=== PATIENT | male | born 1995 | race African-American/Black ===

== ENCOUNTER 2016-05-15 23:00 | Inpatient (IN) | payer OTHER ==
[~2016-05-15] VITALS: Ht 167.6 cm; Wt 77.8 kg
[2016-05-15 23:55] LABS: MEAN CORPUSCULAR HEMOGLOBIN 31.1 pg (27.0-33.0); MEAN CORPUSCULAR HGB CONC 34.4 g/dl (32.0-36.5); MEAN CORPUSCULAR VOLUME 90.3 fl (80.0-96.0); WHITE BLOOD COUNT 9.8 K/mm3 (4.0-10.0)
[2016-05-16 00:04] LABS: AMPHETAMINES LEVEL URINE POSITIVE (NEGATIVE); BENZODIAZEPINES URINE NEGATIVE (NEGATIVE); COCAINE METABOLITE URINE NEGATIVE (NEGATIVE); CONTROL LINE INT CTR LINE PRESENT; METHADONE URINE NEGATIVE (NEGATIVE); OPIATES URINE NEGATIVE (NEGATIVE); TRICYCLIC ANTIDEPRESS URINE NEGATIVE (NEGATIVE)
[2016-05-16 00:28] LABS: ALBUMIN 3.8 GM/DL (3.2-5.2); ALBUMIN/GLOBULIN RATIO 1.19 (1.00-1.93); ALKALINE PHOSPHATASE 75 U/L (45-117); ALT/SGPT 36 U/L (12-78); ANION GAP 10 MEQ/L (8-16); AST/SGOT 21 U/L (15-37); BILIRUBIN,DIRECT 0.3 MG/DL (0.0-0.2); BILIRUBIN,TOTAL 1.3 MG/DL (0.2-1.0); BLOOD UREA NITROGEN 12 MG/DL (7-18); CALCIUM LEVEL 8.9 MG/DL (8.5-10.1); CARBON DIOXIDE LEVEL 30 MEQ/L (21-32); CHLORIDE LEVEL 103 MEQ/L (98-107); CREATININE FOR GFR 1.28 MG/DL (0.70-1.30); GLUCOSE, FASTING 92 MG/DL (70-105); POTASSIUM SERUM 3.7 MEQ/L (3.5-5.1); SODIUM LEVEL 143 MEQ/L (136-145)
[2016-05-16] MEDS ORDERED: LORazepam 1 MG TAB PO PRN (01:30)
[2016-05-16] MEDS ORDERED: MAALOX 30 ML SUSP *UDC PO PRN (01:30)
[2016-05-16] MEDS ORDERED: MOM 30ML SUSPENSION UDC PO PRN (01:30)
[2016-05-16] MEDS ORDERED: HALOPERIDOL 5 MG TAB PO PRN (01:30)
[2016-05-16] MEDS ORDERED: TRAZ100T4 PO (01:44)
[2016-05-16] MEDS ORDERED: DERMABOND TOPICAL SKIN ADHESIVE As Ordered ONE (03:16)
--- NOTE | 2016-05-16 04:20 | EDDOCDS ---
Nurse's Notes [facility] Name: José Miguel May Age: 20 yrs Sex: Male : 1995 Arrival Date: 05/15/2016 Time: 23:00 Bed [facility] Private MD: Diagnosis: Major depressive disorder, recurrent, moderate;Suicidal ideations Presentation: 05/15 23:04 Presenting complaint: Police state pt was sending text/picture messages to family of jf3 large amounts of pills and stating he would kill himself. Pt admitted to to police upon their arrival. Command officer on scene with police, but not at facility at this time. Mental Health Triage Level: Level 2: The patient displays active suicidal ideations. The patient was brought to the ED for evaluation because of a legal pickup order. Mental Health Triage Level: Level 2: The patient displays active suicidal ideations. The patient was brought to the ED for evaluation because of a legal pickup order. Suicide/Homicide risk assessment- The patient admits to and/or has been reported to be having suicidal ideations. Transition of care: patient was not received from another setting of care. 23:04 Acuity: ISIAH Level 3 jf3 23:04 Method Of Arrival: Police Car jf3 23:19 Adult Sepsis Screening: The patient does not have new or worsening altered mentation. jf3 Patient's respiratory rate is less than 22. Systolic blood pressure is greater than 100. Patient has a qSOFA score of 0- Negative Sepsis Screen. 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 23:19 Presenting complaint: Patient states: when asked what happened tonight the pt states "I jf3 don't know". When asked if suicidal pt states he is not suicidal and that he was just sending his pictures of a bunch of pills to be funny and make her mad. Triage Assessment: 23:04 General: Appears in no apparent distress, comfortable, Behavior is agitated, jf3 cooperative. Pt Declines HIV testing. The patient is triaged at the bedside. See Assessment in Nurses Notes section of ED record. 23:18 Pain: Denies pain. Respiratory: Airway is patent Respiratory effort is even, unlabored, jf3 Respiratory pattern is regular, symmetrical. Historical: - Allergies: no known allergies; - Home Meds: 1. none - PMHx: none; - PSHx: none; - The history from nurses notes was reviewed: but there are no nursing notes, or only partial notes available at the time of my charting. - Social history: Smoking status: other No barriers to communication noted, The patient speaks fluent Amharic. - : The pt / caregiver states he / she is not on anticoagulants. Home medication list is obtained from the patient. - Exposure Risk Screening:: None identified. - Immunization history:: Last tetanus immunization: up to date. - Family history: Not pertinent. - Social history:: the patient is a non-smoker, the patient does not drink alcohol, the patient does not use illicit drugs. Screenin:50 Screening information is obtained from the patient. Fall risk: No risks identified. slm Assistance ADL's: requires no assistance with activities of daily living. Abuse/DV Screen: The patient / caregiver reports he/she is: not in a situation that causes fear, pain or injury. Nutritional screening: No deficits noted. Advance Directives: Currently, there is no health care proxy. There is no active DNR order. There is no living will. There is no Power of Wind Turbine Engineer. Advance directive information has not previously been placed in an [facility] medical record. Further advance directive information is declined. 05/16 04:01 home support is adequate. ka4 Assessment: 05/15 23:10 General: Appears in no apparent distress, comfortable, Behavior is quiet. General: pt slm laying on stretcher resistant to answering staffs questions at this time . Respiratory: Airway is patent Respiratory effort is even, unlabored. Derm: Skin is normal. 23:18 General: Appears in no apparent distress, comfortable, Behavior is agitated, jf3 cooperative. Pain: Denies pain. Neurological: Level of Consciousness is awake, alert, Oriented to person, place, time. Cardiovascular: Capillary refill < 3 seconds. Respiratory: Airway is patent Respiratory effort is even, unlabored, Respiratory pattern is regular, symmetrical, Denies shortness of breath at rest. Derm: Skin is normal. 23:27 General: patient came in with 9 white, round, pills that were not identified. pills ka4 were brought to pharmacy.. 05/16 00:01 General: Appears in no apparent distress, comfortable, Behavior is cooperative, slm pleasant. General: pt resting on stretcher security observing . Respiratory: Airway is patent Respiratory effort is even, unlabored. 01:02 General: Appears in no apparent distress, comfortable, Behavior is cooperative, quiet. ka4 Respiratory: Airway is patent Respiratory effort is even, unlabored, Respiratory pattern is regular, symmetrical. 01:57 Reassessment: Patient appears in no apparent distress at this time. General: Appears in ka4 no apparent distress, comfortable, to be sleeping. Behavior is cooperative, quiet. General: security at desk observing . Respiratory: Airway is patent Respiratory effort is even, unlabored, Respiratory pattern is regular, symmetrical. Derm: Skin is intact, is healthy with good turgor, Skin is pink, warm & dry. 03:22 General: Appears in no apparent distress, comfortable, to be sleeping. Respiratory: mgs Airway is patent Respiratory effort is even, unlabored, Respiratory pattern is regular, symmetrical. 04:01 General: Appears in no apparent distress, comfortable, to be sleeping. Behavior is ka4 cooperative, quiet. Respiratory: Airway is patent Respiratory effort is even, unlabored, Respiratory pattern is regular, symmetrical. Mental Health Eval: 00:46 Mental health consult is initiated at 12:20. 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 [facility] Behavioral Health: The patient is not an established patient of [facility] Behavioral Health. Referral Information: Evaluation referral is generated by a police agency: [facility] ([place] # [id number]) on . The patient was referred for evaluation because patient had reportedly sent pictures of pills & text messages regarding suicide to family members, and then admitted to + SI to police when interviewed. 00:51 Subjective: The patients chief complaint is "Well...it was really no big deal. You what jl I mean?". Delusions are denied. Patient's mood is dysphoric. Hallucinations are denied. Patient's sister (Jyoti May) phoned ED U with a report that patient had sent another family member a picture of pills & had expressed + SI from somewhere on [place]. She was directed to [facility], which was able to determine patient's location & dispatch police. Upon arrival in ED, police reported to staff that patient had been found in possession of pills & had admitted to being suicidal. When interviewed by ED MD, patient suggested that he didn't know why he was here. During [facility], patient stated that tonight's events were "Really no big deal". He stated that he had sent the picture of pills to his in attempt to lure her home. When asked why he'd do that, he said that she had done the same thing to him a couple of months ago when she wanted him home quickly. He denied ever telling police that he was suicidal & denied having any mental health hx. When asked what the pills were, he replied that they were "Sleeping pills, Trazodone", and that he'd gotten them from [facility]. He said that the pills "Must have fallen out of my pocket or something", when he got up to answer the door [when police arrived]. Mental Health history: sleep disturbance, Mental Health Admissions: None. Current Outpatient Mental Health Services: ? [facility]. Current living environment is The patient currently lives with his . Patient presents to Emergency Department with the following symptoms within the past 2 weeks: marital problem, sleep disturbance - insomnia, suicidal ideation with plan for pills. Substance abuse: Patient denies, although his UDS in ED tonight is positive for amphetamines. Mental status exam: Patients appearance is appropriate, Patient's behavior is superficially cooperative Speech is unspontaneous Affect is restricted. Mood is dysphoric. Hallucinations are denied. Appetite is normal. Memory is good. Energy level is normal. Content of thought is normal. Thought process is intact. Cognitive level is oriented to person, place, time and situation Patient's insight is poor. Judgement is poor. Rapport with interviewer is guarded. Suicidal Ideation is denied. Homicidal ideation is denied. 02:06 Disposition: Medically cleared for disposition by Segundo Atwood MD Psychiatric Consult jl is performed by phone with Dr Gallo Sarah. [facility] Admission Criteria: The patient is experiencing suicidal ideation. The patient requires continuous observation and/or control to protect self, others or property. The patient's care requires a multi-modal treatment plan under close supervision and coordination due to the complexity and severity of the patient's symptoms. Legal Status: Patient's legal status will be Emergency admission: . [place] Safe Act: [place] Safe [place] is applicable to this patient. The patient poses a risk to self or other and the Nursing Scrap Drop Operator has been notified. He/She will enter the patient's data. DSM-V Differential Diagnosis: Unspecified Depressive Disorder (F32.9). Insurance Pre-Certification: Not Required. Vital Signs: 01/02 23:09 BP 132 / 77; Pulse 96; Resp 16; Temp 98.4; Pulse Ox 97% on R/A; Pain 0/10; slm 05/16 03:25 BP 141 / 70; Pulse 89; Resp 18; Temp 96.9(T); Pulse Ox 96% on R/A; Pain 0/10; ka4 Vitals: 05/15 23:04 Log In time N/A- police car arrival. jf3 ED Course: 23:02 Patient visited by Toby Mckeon. zo 23:02 Patient moved to Waiting zo 23:02 Patient moved to [facility] zo 23:07 Triage Initiated jf3 23:08 Segundo Atwood MD is Attending Physician. pc 23:08 Patient visited by Segundo Atwood MD. pc 23:09 Nelli Arredondo LPN is Primary Nurse. slm 23:11 Patient visited by Nelli Arredondo LPN. slm 23:15 Pt greeted and oriented to ED. Patient advised of names of staff involved in care, kb5 location of call sauer, wait times and NPO status. Patient has correct armband on for positive identification. Placed in psych safe attire. Bed in low position. Call light in reach. Side rails up X 1. Security observing. Property removed, inventory done, secured in belongings bag- Placed in Locker 1. Door closed. Noise minimized. Visitors limited. Psych Safety Check: Location: Psych Room. Visual Assessment: Cooperative. Psych Safety Check: Location: Psych Room. Visual Assessment: Cooperative. 23:18 The patient / caregiver is instructed regarding the plan of care and ED course. jf3 23:22 Patient visited by Noe Kidd PCA. kb5 23:27 Patient visited by Italia Corrales LPN. ka4 23:30 Psych Safety Check: Location: Psych Room. Visual Assessment: Cooperative. kb5 23:42 Patient visited by Noe Kidd PCA. kb5 23:45 Psych Safety Check: Location: Psych Room. Visual Assessment: Cooperative. kb5 23:50 Patient visited by Nelli Arredondo LPN. slm 23:50 No IV's were initiated during this patient's visit. No procedures done that require slm assistance. Labs drawn. (by ED staff). Sent per order to lab. Urine collected. Urine specimen sent to lab. 05/16 00:00 Psych Safety Check: Location: Psych Room. Visual Assessment: Cooperative. kb5 00:01 Patient visited by Noe Kidd PCA. kb5 00:02 Patient visited by Nelli Arredondo LPN. slm 00:15 Psych Safety Check: Location: Psych Room. Visual Assessment: Cooperative. kb5 00:29 Patient visited by Noe Kidd PCA. kb5 00:30 Psych Safety Check: Location: Psych Room. Visual Assessment: Cooperative. kb5 00:45 Patient visited by Noe Kidd PCA. kb5 00:45 Psych Safety Check: Location: Psych Room. Visual Assessment: Cooperative. kb5 01:00 Psych Safety Check: Location: Psych Room. Visual Assessment: Cooperative. kb5 01:08 Patient visited by Noe Kidd PCA. kb5 01:15 Patient visited by Noe Kidd PCA. kb5 01:15 Psych Safety Check: Location: Psych Room. Visual Assessment: Cooperative. kb5 01:16 Gallo Sarah is Hospitalizing Provider. pc 01:30 Psych Safety Check: Location: Psych Room. Visual Assessment: Cooperative. kb5 01:34 Patient name changed from José Miguel\\S\\\\S\\May\\S\\ to José Miguel\\S\\Abdias\\S\\May. EDMS 01:34 [facility] Payment Agreement was scanned into [employer] and attached to record. hs2 01:38 Patient visited by Noe Kidd PCA. kb5 01:40 Primary Nurse role handed off by Nelli Arredondo LPN tasha 01:45 Patient visited by Noe Kidd PCA. kb5 01:45 Psych Safety Check: Location: Psych Room. Visual Assessment: Cooperative. kb5 01:51 Patient visited by Italia Corrales LPN. ka4 01:57 Patient visited by Italia Corrales LPN. ka4 02:00 Psych Safety Check: Location: Psych Room. Visual Assessment: Cooperative. kb5 02:06 [facility] Legal paperwork was scanned into [employer] and attached to record. jl 02:15 Psych Safety Check: Location: Psych Room. Visual Assessment: Cooperative. kb5 02:30 Psych Safety Check: Location: Psych Room. Visual Assessment: Cooperative. kb5 02:43 Patient visited by Noe Kidd PCA. kb5 02:45 Psych Safety Check: Location: Psych Room. Visual Assessment: Cooperative. kb5 03:00 Psych Safety Check: Location: Psych Room. Visual Assessment: Cooperative. kb5 03:15 Psych Safety Check: Location: Psych Room. Visual Assessment: Cooperative. kb5 03:22 Alen Mabry,RICHARD is Primary Nurse. mgs 03:26 Patient visited by Italia Corrales LPN. ka4 03:30 Patient visited by Noe Kidd PCA. kb5 03:30 Psych Safety Check: Location: Psych Room. Visual Assessment: Cooperative. kb5 03:45 Patient visited by Noe Kidd PCA. kb5 03:45 Psych Safety Check: Location: Psych Room. Visual Assessment: Cooperative. kb5 04:00 Patient visited by Noe Kidd PCA. kb5 04:00 Psych Safety Check: Location: Psych Room. Visual Assessment: Cooperative. kb5 04:02 Patient visited by Italia Corrales LPN. ka4 04:15 Patient visited by Noe Kidd PCA. kb5 04:15 Psych Safety Check: Location: Psych Room. Visual Assessment: Cooperative. kb5 Attachments: 02:06 [facility] Legal paperwork jl Order Results: Lab Order: Acetaminophen Level; SPEC'M 05/15/16 23:35 Test: ACETAMINOPHEN LEVEL; Value: < 2.0; Range: 10.0-30.0; Abnormal: Below low normal; Units: UG/ML; Status: F Lab Order: Basic Metabolic Profile; SPEC'M 05/15/16 23:35 Test: GLUCOSE, FASTING; Value: 92; Range: 70-105; Units: MG/DL; Status: F Test: BLOOD UREA NITROGEN; Value: 12; Range: 7-18; Units: MG/DL; Status: F Test: CREATININE FOR GFR; Value: 1.28; Range: 0.70-1.30; Units: MG/DL; Status: F Test: SODIUM LEVEL; Value: 143; Range: 136-145; Units: MEQ/L; Status: F Test: POTASSIUM SERUM; Value: 3.7; Range: 3.5-5.1; Units: MEQ/L; Status: F Test: CHLORIDE LEVEL; Value: 103; Range: 98-107; Units: MEQ/L; Status: F Test: CARBON DIOXIDE LEVEL; Value: 30; Range: 21-32; Units: MEQ/L; Status: F Test: ANION GAP; Value: 10; Range: 8-16; Units: MEQ/L; Status: F Test: CALCIUM LEVEL; Value: 8.9; Range: 8.5-10.1; Units: MG/DL; Status: F Lab Order: Complete Blood Count; SPEC'M 05/15/16 23:35 Test: WHITE BLOOD COUNT; Value: 9.8; Range: 4.0-10.0; Units: K/mm3; Status: F Test: RED BLOOD COUNT; Value: 4.60; Range: 4.30-6.10; Units: M/mm3; Status: F Test: HEMOGLOBIN; Value: 14.3; Range: 14.0-18.0; Units: g/dl; Status: F Test: HEMATOCRIT; Value: 41.5; Range: 42.0-52.0; Abnormal: Below low normal; Units: %; Status: F Test: MEAN CORPUSCULAR VOLUME; Value: 90.3; Range: 80.0-96.0; Units: fl; Status: F Test: MEAN CORPUSCULAR HEMOGLOBIN; Value: 31.1; Range: 27.0-33.0; Units: pg; Status: F Test: MEAN CORPUSCULAR HGB CONC; Value: 34.4; Range: 32.0-36.5; Units: g/dl; Status: F Test: RED CELL DISTRIBUTION WIDTH; Value: 13.0; Range: 11.5-14.5; Units: %; Status: F Test: PLATELET COUNT, AUTOMATED; Value: 271; Range: 150-450; Units: k/mm3; Status: F Lab Order: Drug Eval Toxicology ED Only; SPEC'M 05/15/16 23:36 Test: AMPHETAMINES LEVEL URINE; Value: POSITIVE; Range: NEGATIVE; Abnormal: Above high normal; Status: F Test: BARBITURATES URINE; Value: NEGATIVE; Range: NEGATIVE; Status: F Test: BENZODIAZEPINES URINE; Value: NEGATIVE; Range: NEGATIVE; Status: F Test: CANNABINOIDS URINE; Value: NEGATIVE; Range: NEGATIVE; Status: F Test: COCAINE METABOLITE URINE; Value: NEGATIVE; Range: NEGATIVE; Status: F Test: METHADONE URINE; Value: NEGATIVE; Range: NEGATIVE; Status: F Test: OPIATES URINE; Value: NEGATIVE; Range: NEGATIVE; Status: F Test: TRICYCLIC ANTIDEPRESS URINE; Value: NEGATIVE; Range: NEGATIVE; Status: F Test Note: ; ALL PRESUMPTIVE POSITIVE FINDINGS ARE UNCONFIRMED NORMAL VALUES THRESHOLD IN NG/ML AMPHETAMINES 1000 METHAMPHETAMINES 1000 BARBITURATES 300 BENZODIAZEPINES 300 CANNABINOIDS (THC) 50 COCAINE METABOLITE 300 METHADONE 300 OPIATES 300 PHENCYCLIDINE 25 TRICYCLIC ANTIDEPRESSANTS 1000 RESULTS ARE FOR MEDICAL PURPOSES ONLY. ALL URINE SPECIMENS WILL BE SAVED FOR 3 DAYS. IF CONFIRMATION OF A PRESUMPTIVE POSTIVE SCREEN RESULT IS DESIRED, CALL CHEMISTRY ([phone]) AND REQUEST URINE TO BE SENT TO REFERENCE LAB. FOR A LIST OF CLOSELY RELATED COMPOUNDS PLEASE CALL THE LAB. Lab Order: Ethyl Alcohol (ethanol); SPEC'M 05/15/16 23:35 Test: ETHYL ALCOHOL (ETHANOL); Value: < 0.003; Range: 0.000-0.010; Units: %; Status: F Lab Order: Liver Profile; SPEC'M 05/15/16 23:35 Test: AST/SGOT; Value: 21; Range: 15-37; Units: U/L; Status: F Test: ALT/SGPT; Value: 36; Range: 12-78; Units: U/L; Status: F Test: ALKALINE PHOSPHATASE; Value: 75; Range: 45-117; Units: U/L; Status: F Test: BILIRUBIN,TOTAL; Value: 1.3; Range: 0.2-1.0; Abnormal: Above high normal; Units: MG/DL; Status: F Test: BILIRUBIN,DIRECT; Value: 0.3; Range: 0.0-0.2; Abnormal: Above high normal; Units: MG/DL; Status: F Test: TOTAL PROTEIN; Value: 7.0; Range: 6.4-8.2; Units: GM/DL; Status: F Test: ALBUMIN; Value: 3.8; Range: 3.2-5.2; Units: GM/DL; Status: F Test: ALBUMIN/GLOBULIN RATIO; Value: 1.19; Range: 1.00-1.93; Status: F Lab Order: Salicylate Level; SPEC'M 05/15/16 23:35 Test: SALICYLATE LEVEL; Value: < 1.7; Range: 5.0-30.0; Abnormal: Below low normal; Units: MG/DL; Status: F Lab Order: Thyroid Stimulating Hormone; SPEC'M 05/15/16 23:35 Test: THYROID STIMULATING HORMONE; Value: 1.270; Range: 0.463-3.98; Units: uIU/ML; Status: F Outcome: 01:16 Decision to Hospitalize by Provider. 04:01 Discharge Assessment: Patient awake, alert and oriented x 3. No cognitive and/or ka4 functional deficits noted. Patient verbalized understanding of disposition instructions. Discharge Assessment: patient administered narcotics - no. The following High Risk Discharge criteria are identified: None. Admitted to Psych accompanied by tech, via wheelchair. Condition: stable. No special radiology studies were completed. 04:18 Patient left the ED. ka4 Signatures: Dispatcher [employer] EDMS Segundo Atwood MD MD pc Skyler, Nirav, PSA PSA Toby Swan Kristopher, CLINIC PHYSICIAN CLINIC PHYSICIAN kb5 Terri Yoder, CLINIC PHYSICIAN CLINIC PHYSICIAN tasha Nelli Arredondo,GOAT FARMER GOAT FARMER slm Italia Corrales,GOAT FARMER GOAT FARMER ka4 Alen Mabry RN RN s Se Franks RN RN 3 Katrin Redding, Reg Reg hs2 Corrections: (The following items were deleted from the chart) 01:03 00:46 Referral Information: Evaluation referral is generated by a police agency: [employer] ([place] # [id number]) on . The patient was referred for evaluation because patient had reportedly sent pictures of pills & text messages regarding suicide to family members. gita MTDD
--- NOTE | 2016-05-16 04:20 | EDDOCDS ---
Physician Documentation [facility] Name: José Miguel May Age: 20 yrs Sex: Male : 1995 Arrival Date: 05/15/2016 Time: 23:00 Bed BHU1 Private MD: Disposition: 05/16 01:15 Critical Care: Critical care not applicable. pc Disposition: 05/16/16 01:16 Hospitalization ordered by Gallo Sarah for Inpatient Admission. Preliminary diagnosis are Major depressive disorder, recurrent, moderate, Suicidal ideations. - Bed requested for Admit. - Status is Inpatient Admission. ka4 - Condition is Stable. - Problem is new. - Symptoms are unchanged. HPI: 05/15 23:08 This 20 yrs old Male presents to ER via Police Car with complaints of Psych Problem. pc 23:08 The history is obtained from the patient, a security police. A reliable history and/or pc examination was not able to be obtained, due to he is not willing to answer any questions, with every response either "I don't know" or "no". Per police, he sent a picture of pills to his family with SI threats. It is unknown whether or not the patient has recently seen a physician. Historical: - Allergies: no known allergies; - Home Meds: 1. none - PMHx: none; - PSHx: none; - The history from nurses notes was reviewed: but there are no nursing notes, or only partial notes available at the time of my charting. - Social history: Smoking status: other No barriers to communication noted, The patient speaks fluent Yi. - : The pt / caregiver states he / she is not on anticoagulants. Home medication list is obtained from the patient. - Exposure Risk Screening:: None identified. - Immunization history:: Last tetanus immunization: up to date. - Family history: Not pertinent. - Social history:: the patient is a non-smoker, the patient does not drink alcohol, the patient does not use illicit drugs. ROS: 23:08 unable to reliably obtain, since his answer to all queries is "no".. pc Exam: 23:08 General Appearance: alert, no acute distress. pc 23:08 ENT: ear, nose and throat normal, pharynx normal. 23:08 Eyes: pupils equal, round and reactive to light, extraocular motions intact. 23:08 Neck: The exam reveals no acute abnormalities. ROM is normal and painless. No nuchal rigidity is noted.. 23:08 Respiratory: breathing is even and unlabored, breath sounds are normal. 23:08 Cardiovascular: regular pulse rate, regular heart rhythm, normal heart sounds, equal and full pulses bilaterally. 23:08 Abdomen: soft, non-tender, no organomegaly, normal bowel sounds. 23:08 Skin: skin color is normal, warm, dry. 23:08 Extremities: The extremities have a grossly normal appearance, are non-tender, without acute ROM abnormalities. 23:08 Neuro: alert, oriented to person, place and time, cranial nerves normal as tested, no motor deficits, no sensory deficits. 23:08 Psych: mood is non-communicative, affect is flat. Vital Signs: 23:09 BP 132 / 77; Pulse 96; Resp 16; Temp 98.4; Pulse Ox 97% on R/A; Pain 0/10; slm 05/16 03:25 BP 141 / 70; Pulse 89; Resp 18; Temp 96.9(T); Pulse Ox 96% on R/A; Pain 0/10; ka4 MDM: 05/15 23:08 Consult PFS/PSA/Shoe Worker: Patient's case requires discussion with on-call pc Psychiatrist ordered. 23:08 PSA/PFS to call Nursing Harness Worker, to enter patient data on [place] Safe Act if patient pc involuntarily admitted or transferred for SI or HI ordered. 23:08 Confirm accurate psychiatric medication list and times of last dosage ordered. pc 23:08 Detain Pt Until Medically/PFS Cleared ordered. pc 23:08 Differential diagnosis: depression, suicidal ideation. Plan: labs, PFS eval. pc 23:09 Acetaminophen Level Ordered. EDMS 23:09 Basic Metabolic Profile Ordered. EDMS 23:09 Complete Blood Count Ordered. EDMS 23:09 Drug Eval Toxicology ED Only Ordered. EDMS 23:09 Ethyl Alcohol (ethanol) Ordered. EDMS 23:09 Liver Profile Ordered. EDMS 23:09 Salicylate Level Ordered. EDMS 23:09 Thyroid Stimulating Hormone Ordered. EDMS 05/16 00:37 Financial registration complete. hs2 00:42 Acetaminophen Level Reviewed. pc 00:42 Complete Blood Count Reviewed. pc 00:42 Drug Eval Toxicology ED Only Reviewed. pc 00:42 Liver Profile Reviewed. pc 00:42 Salicylate Level Reviewed. pc 00:42 Basic Metabolic Profile Reviewed. pc 00:42 Ethyl Alcohol (ethanol) Reviewed. pc 00:42 Thyroid Stimulating Hormone Reviewed. pc 01:15 The patient has been medically cleared for psychiatric evaluation, admission and/or pc transfer. [place] Safe Act reporting: The patient poses a significant risk to self or others, and PSA/PFS has notified the Nursing Harness Worker and he/she will complete the required lead database administrator. Data reviewed: old medical records, vital signs, nurses notes, lab test results. Test interpretation: LAB - all labs as ordered have been reviewed, interpreted and considered in the overall management of the clinical presentation;. The patient has been re-examined and re-evaluated. There is no appreciated change of the patient's symptoms at this time. Disposition: The historical points, examination findings, and any diagnostic results supporting the provided diagnosis, were discussed with the patient or legal guardian. The need for further work-up and/or treatment in the hospital was explained. 01:24 Admit to IMHU: ordered. EDMS 01:25 REGULAR DIET ordered. EDME 01:34 [facility] Payment Agreement was scanned into [employer] and attached to record. hs2 02:06 [facility] Legal paperwork was scanned into [employer] and attached to record. jl 03:46 Consult PFS/PSA/Shoe Worker: Patient's case requires discussion with on-call jl Psychiatrist complete. 03:46 PSA/PFS to call Nursing Harness Worker, to enter patient data on [place] if patient jl involuntarily admitted or transferred for SI or HI complete. Signatures: Dispatcher [email or web address] Segundo Hilliard MD MD pc LaFontaine, Jon, PSA PSA Italia Dougherty LPN LPN ka4 eS Franks,RN RN jf3 Katrin Redding, Reg Reg hs2 The chart was reviewed and I authenticate all verbal orders and agree with the evaluation and treatment provided.Attachments: 01:34 [facility] Payment Agreement hs2 [facility]
[2016-05-16 04:27] VITALS: BP 137/75
--- NOTE | 2016-05-16 09:58 | HPEPDOC ---
Medical History and Physical Date of Admission May 16, 2016 at 04:23 History and Physical PCP: [facility] ATTENDING: Dr. Benji Green HPI: 20yoM admitted to [facility] for MDD, being medically examined today. No acute medical complaints today. Denies any fevers, chills, weakness, fatigue, SHETH, CP, SOB, cough, palpitations, abdominal pain, N/V/D or changes in bowel or bladder habits. 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 ROS: As noted in HPI, otherwise 11pt ROS of systems reviewed and unremarkable PE: GEN: 20yoM, appears stated age. Well-nourished, well developed. No acute distress. Alert and oriented x 3. Pleasant, interactive. HEENT: Normocephalic, atraumatic. Pupils are equal, round, and reactive to light. Extraocular movements are intact. No nystagmus appreciated. Sclera are nonicteric. Conjunctiva without injection. Nose midline. Nasal turbinates without bogginess. EACs both patent BL. TMs both visualized and peoples with good cone of light, no bulging or erythema. No facial asymmetry. Moist mucous membranes. Dentition fair. Pharynx pink and moist, no cobblestoning. Neck supple , trachea midline. No lymphadenopathy or thyromegaly appreciated. CHEST: Regular rate and rhythm, +S1, +S2 LUNGS: Clear to auscultation bilaterally. No wheezes, rales, or rhonchi. Breathing appears symmetric and easy. Patient is speaking in full sentences. No accessory muscle use. ABD: Round, soft, non-tender, non-distended. +Bowel sounds throughout. No rebound or guarding. No costovertebral angle tenderness. EXT: Pulses 2+ bilaterally dorsalis pedis and radial. No lower extremity edema appreciated. SKIN: [place], dry, warm. Capillary refill <2sec. No rashes. NEURO: Alert and oriented x 3. Cranial nerves III-XII are intact. No focal deficits appreciated. EKG: Pending A&P: 20yoM admitted to [facility] for MDD 1. Psych. Plan per Psychiatry. Obtain baseline EKG to assure the safety of psychiatric medications as they can prolong the QT interval. 2. Follow up with PCP on discharge. [facility]. 3. Accompanied throughout exam by Benji EMERY. Vital Signs Vital Signs Label Value Date Time Patient Temperature 98.1 degrees F 05/16/16426 Temperature Source Tympanic 05/16/16426 Pulse 80 05/16/16426 Respiratory Rate 20 bpm 05/16/16426 Blood Pressure Assessment 137/75 (95) 05/16/167 Laboratory Data Labs 24H Laboratory Tests 2 05/15/16 23:35: Acetaminophen Level < 2.0L, Aspartate Amino Transf (AST/SGOT) 21, Alanine Aminotransferase (ALT/SGPT) 36, Alkaline Phosphatase 75, Total Bilirubin 1.3H, Direct Bilirubin 0.3H, Albumin 3.8, Albumin/Globulin Ratio 1.19, Anion Gap 10, Calcium Level 8.9, Ethyl Alcohol Level < 0.003, Salicylates Level < 1.7L, Thyroid Stimulating Hormone (TSH) 1.270, Total Protein 7.0 05/15/16 23:36: Urine Amphetamine Level POSITIVEH, Urine Benzodiazepines Screen NEGATIVE, Urine Cannabinoids NEGATIVE, Urine Cocaine Metabolite NEGATIVE, Urine Opiates Screen NEGATIVE, Urine Barbiturates, Qualitative NEGATIVE, Urine Methadone Screen NEGATIVE, Urine Tricyclic Antidepressants NEGATIVE CBC/BMP Laboratory Tests 05/15/16 23:35 Red Blood Count 4.60, Mean Corpuscular Volume 90.3, Mean Corpuscular Hemoglobin 31.1, Mean Corpuscular Hemoglobin Concent 34.4, Red Cell Distribution Width 13.0 Home Medications Scheduled PRN Trazodone HCl (Trazodone HCl) 100 Mg Tab 100 MG PO QHS PRN PRN SLEEP Allergies Coded Allergies: No Known Drug Allergy (Unverified Allergy, Unknown, 05/16/16) Karlene Pena May 16, 2016 09:58
[2016-05-16 18:00] VITALS: BP 135/69
--- NOTE | 2016-05-16 21:56 | MHHPE ---
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 At the emergency department (ED) he told staff that it was really not a big deal, and that he did not actually mean to kill himself. He denied any form of delusion or hallucination. In my interview with the patient he says that his does send him similar pictures and text messages on the phone and this time he was involved in a relational problem with his and that she left his house due to being kicked out of the and that, in retaliation, he sent a text message and picture to her with some pills, but that he did that as a joke. He states that he now realizes that it is a joke gone too far. Although admitting to recent stress, related to conflicts with his and occasional sleep difficulties, he denies severe depressive symptoms and reports no symptoms suggestive of psychosis or cristina. PAST PSYCHIATRIC HISTORY; He denies any previous inpatient or outpatient psychiatric treatment but reports that recently he had visited the behavioral health in his unit, due to having trouble sleeping and was prescribed trazodone. He states that he actually did not take the medication. Other psychiatric problems are denied. SUBSTANCE ABUSE HISTORY: Denied. Of note, his urine toxicology in the emergency room was positive for amphetamines, however he suspects that it must have been from sexual enhancing pill, "[id number]", which he had used during the period. MEDICAL HISTORY: No medical issues or allergy reported. PERSONAL HISTORY: Patient reports that he was born in [place], [place] and grew up same place. His parents where not . He has two brothers and one sister. He reports having a close relationship with his family, except his father. Normal childhood reported, and no history of abuse. He has a High school diploma, subsequently attended a Vocational school. 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 He is ; has no children. Previously but said marriage ended in a divorce. He denies any legal history. FAMILY HISTORY: No pertinent mental illness reported. REVIEW OF SYSTEMS: No significant problems noted. MENTAL STATUS EXAMINATION: The patient is of average height 5' 6" and build, 171 pounds. He wears extensive tattoos on both upper and lower arms. He has fair grooming and well kempt. His speech is of normal volume, rate and rhythm. No thought disorder evident. He denies delusion and does not appear to be responding to internal stimuli. His mood is not significantly depressed, and affect is of normal range. Cognitively he is alert, oriented to time, place and person. He denies suicidal or homicidal ideation. Insight is fair and judgment not impaired. DIAGNOSIS: Adjustment disorder unspecified. PROBLEM LIST: 1. Adjustment difficulties. 2. Risk for suicide. PLAN: Patient will be admitted for observation. No psychiatric medication is currently indicated however he will be provided with therapeutic programs including group, individual and activities. He will be reevaluated ongoing and if stable with no evidence of risk to self, he will be scheduled for discharge in the next 24 hours. TRISTON
[2016-05-17 06:28] VITALS: BP 112/60
--- NOTE | 2016-05-18 01:38 | MHDS ---
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 In the emergency department, he told staff that it was really not a big deal and that he did not actually mean to kill himself. He denied any form of delusion or hallucination. In my interview with the patient, he stated that his does send him similar pictures and text messages on the phone and this time he was involved in a relational problem with his and that she left his house due to being kicked out of the , and that in retaliation he sent a text message and picture of pills, suggesting an overdose plan, but that he actually, did not have plans to kill himself. He described his act as "a joke gone too far ". Mr. May nevertheless admitted to recent stress, associated with conflicts with his . He also reported occasional insomnia; however, he denied severe depressive symptoms and reported no symptoms suggestive of psychosis or cristina. PAST PSYCHIATRIC HISTORY: He denied any previous inpatient or outpatient psychiatric treatment, but reported that recently he had visited the behavioral health at [place] due to having trouble sleeping, and was prescribed trazodone. He stated that he actually did not take the medication. Other psychiatric problems were denied. SUBSTANCE ABUSE HISTORY: He denied use of substances, including cigarettes and alcohol. While in the emergency room, his urine toxicology was positive for amphetamines; however, he explained the positive finding, stating that he used some sexual enhancing pills named [id number] during the period. MEDICAL HISTORY: No medical issues or allergy reported. PERSONAL HISTORY: The patient reported that he was born in [place], [place] and grew up same place. His parents were not . He has two brothers and one sister. Reported having a close relationship with his family. Normal childhood reported and history of abuse denied. He has a high school diploma, subsequently attended vocational school. 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 He is , has no children. Reported previous marriage that ended up in a divorce. He denied any legal history. No pertinent mental history in family. No significant findings in review of systems. HOSPITAL COURSE: The patient on admission was diagnosed with adjustment - related disorder. The treatment plan included provision of psychotherapeutic programs including group, individual and activities. No medication was prescribed as there was no indication for treatment with such. The patient was reassessed ongoing and noted to have no significant risk for suicide. He denied any plans to harm himself or others and mood was noted to be stable. He interacted normally with his peers and attended all therapeutic programs. MENTAL STATUS: Alert, calm, cooperative. Speech is fluent. Thought process is coherent and logical. No delusion or ideas of reference. No evidence of hallucination and he is not noted to be responding to internal stimuli. His mood is euthymic. Affect is less constricted. He denies suicidal or homicidal ideation. DISCHARGE DIAGNOSIS: Unspecified Adjustment Disorder. PLAN: Patient discharged with followup arrangements for counseling at the behavioral health clinic at [place]. Discharge plan discussed with the patient and he is in agreement. TRISTON
--- NOTE | 2016-05-18 05:19 | EDDOCDS ---
Nurse's Notes [facility] Name: José Miguel May Age: 20 yrs Sex: Male : 1995 Arrival Date: 05/15/2016 Time: 23:00 Bed [facility] Private MD: Diagnosis: Major depressive disorder, recurrent, moderate;Suicidal ideations Presentation: 05/15 23:04 Presenting complaint: Police state pt was sending text/picture messages to family of jf3 large amounts of pills and stating he would kill himself. Pt admitted to to police upon their arrival. Command officer on scene with police, but not at facility at this time. Mental Health Triage Level: Level 2: The patient displays active suicidal ideations. The patient was brought to the ED for evaluation because of a legal pickup order. Mental Health Triage Level: Level 2: The patient displays active suicidal ideations. The patient was brought to the ED for evaluation because of a legal pickup order. Suicide/Homicide risk assessment- The patient admits to and/or has been reported to be having suicidal ideations. Transition of care: patient was not received from another setting of care. 23:04 Acuity: ISIAH Level 3 jf3 23:04 Method Of Arrival: Police Car jf3 23:19 Adult Sepsis Screening: The patient does not have new or worsening altered mentation. jf3 Patient's respiratory rate is less than 22. Systolic blood pressure is greater than 100. Patient has a qSOFA score of 0- Negative Sepsis Screen. 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 23:19 Presenting complaint: Patient states: when asked what happened tonight the pt states "I jf3 don't know". When asked if suicidal pt states he is not suicidal and that he was just sending his pictures of a bunch of pills to be funny and make her mad. Triage Assessment: 23:04 General: Appears in no apparent distress, comfortable, Behavior is agitated, jf3 cooperative. Pt Declines HIV testing. The patient is triaged at the bedside. See Assessment in Nurses Notes section of ED record. 23:18 Pain: Denies pain. Respiratory: Airway is patent Respiratory effort is even, unlabored, jf3 Respiratory pattern is regular, symmetrical. Historical: - Allergies: no known allergies; - Home Meds: 1. none - PMHx: none; - PSHx: none; - The history from nurses notes was reviewed: but there are no nursing notes, or only partial notes available at the time of my charting. - Social history: Smoking status: other No barriers to communication noted, The patient speaks fluent Telugu. - : The pt / caregiver states he / she is not on anticoagulants. Home medication list is obtained from the patient. - Exposure Risk Screening:: None identified. - Immunization history:: Last tetanus immunization: up to date. - Family history: Not pertinent. - Social history:: the patient is a non-smoker, the patient does not drink alcohol, the patient does not use illicit drugs. Screenin:50 Screening information is obtained from the patient. Fall risk: No risks identified. slm Assistance ADL's: requires no assistance with activities of daily living. Abuse/DV Screen: The patient / caregiver reports he/she is: not in a situation that causes fear, pain or injury. Nutritional screening: No deficits noted. Advance Directives: Currently, there is no health care proxy. There is no active DNR order. There is no living will. There is no Power of Vice President & [employer]. Advance directive information has not previously been placed in an [facility] medical record. Further advance directive information is declined. 05/16 04:01 home support is adequate. ka4 Assessment: 05/15 23:10 General: Appears in no apparent distress, comfortable, Behavior is quiet. General: pt slm laying on stretcher resistant to answering staffs questions at this time . Respiratory: Airway is patent Respiratory effort is even, unlabored. Derm: Skin is normal. 23:18 General: Appears in no apparent distress, comfortable, Behavior is agitated, jf3 cooperative. Pain: Denies pain. Neurological: Level of Consciousness is awake, alert, Oriented to person, place, time. Cardiovascular: Capillary refill < 3 seconds. Respiratory: Airway is patent Respiratory effort is even, unlabored, Respiratory pattern is regular, symmetrical, Denies shortness of breath at rest. Derm: Skin is normal. 23:27 General: patient came in with 9 white, round, pills that were not identified. pills ka4 were brought to pharmacy.. 05/16 00:01 General: Appears in no apparent distress, comfortable, Behavior is cooperative, slm pleasant. General: pt resting on stretcher security observing . Respiratory: Airway is patent Respiratory effort is even, unlabored. 01:02 General: Appears in no apparent distress, comfortable, Behavior is cooperative, quiet. ka4 Respiratory: Airway is patent Respiratory effort is even, unlabored, Respiratory pattern is regular, symmetrical. 01:57 Reassessment: Patient appears in no apparent distress at this time. General: Appears in ka4 no apparent distress, comfortable, to be sleeping. Behavior is cooperative, quiet. General: security at desk observing . Respiratory: Airway is patent Respiratory effort is even, unlabored, Respiratory pattern is regular, symmetrical. Derm: Skin is intact, is healthy with good turgor, Skin is pink, warm & dry. 03:22 General: Appears in no apparent distress, comfortable, to be sleeping. Respiratory: mgs Airway is patent Respiratory effort is even, unlabored, Respiratory pattern is regular, symmetrical. 04:01 General: Appears in no apparent distress, comfortable, to be sleeping. Behavior is ka4 cooperative, quiet. Respiratory: Airway is patent Respiratory effort is even, unlabored, Respiratory pattern is regular, symmetrical. Mental Health Eval: 00:46 Mental health consult is initiated at 12:20. 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 [facility] Behavioral Health: The patient is not an established patient of [facility] Behavioral Health. Referral Information: Evaluation referral is generated by a police agency: [facility] (Marion Young # [id number]) on . The patient was referred for evaluation because patient had reportedly sent pictures of pills & text messages regarding suicide to family members, and then admitted to + SI to police when interviewed. 00:51 Subjective: The patients chief complaint is "Well...it was really no big deal. You what jl I mean?". Delusions are denied. Patient's mood is dysphoric. Hallucinations are denied. Patient's sister (Jyoti May) phoned ED U with a report that patient had sent another family member a picture of pills & had expressed + SI from somewhere on [place]. She was directed to [facility], which was able to determine patient's location & dispatch police. Upon arrival in ED, police reported to staff that patient had been found in possession of pills & had admitted to being suicidal. When interviewed by ED MD, patient suggested that he didn't know why he was here. During [facility], patient stated that tonight's events were "Really no big deal". He stated that he had sent the picture of pills to his in attempt to lure her home. When asked why he'd do that, he said that she had done the same thing to him a couple of months ago when she wanted him home quickly. He denied ever telling police that he was suicidal & denied having any mental health hx. When asked what the pills were, he replied that they were "Sleeping pills, Trazodone", and that he'd gotten them from [facility]. He said that the pills "Must have fallen out of my pocket or something", when he got up to answer the door [when police arrived]. Mental Health history: sleep disturbance, Mental Health Admissions: None. Current Outpatient Mental Health Services: ? [facility]. Current living environment is The patient currently lives with his . Patient presents to Emergency Department with the following symptoms within the past 2 weeks: marital problem, sleep disturbance - insomnia, suicidal ideation with plan for pills. Substance abuse: Patient denies, although his UDS in ED tonight is positive for amphetamines. Mental status exam: Patients appearance is appropriate, Patient's behavior is superficially cooperative Speech is unspontaneous Affect is restricted. Mood is dysphoric. Hallucinations are denied. Appetite is normal. Memory is good. Energy level is normal. Content of thought is normal. Thought process is intact. Cognitive level is oriented to person, place, time and situation Patient's insight is poor. Judgement is poor. Rapport with interviewer is guarded. Suicidal Ideation is denied. Homicidal ideation is denied. 02:06 Disposition: Medically cleared for disposition by Segundo Atwood MD Psychiatric Consult jl is performed by phone with Dr Gallo Sarah. [facility] Admission Criteria: The patient is experiencing suicidal ideation. The patient requires continuous observation and/or control to protect self, others or property. The patient's care requires a multi-modal treatment plan under close supervision and coordination due to the complexity and severity of the patient's symptoms. Legal Status: Patient's legal status will be Emergency admission: . [place] Safe Act: [place] Safe Act is applicable to this patient. The patient poses a risk to self or other and the Nursing Filter Tender Jelly has been notified. He/She will enter the patient's data. DSM-V Differential Diagnosis: Unspecified Depressive Disorder (F32.9). Insurance Pre-Certification: Not Required. Vital Signs: 01/02 23:09 BP 132 / 77; Pulse 96; Resp 16; Temp 98.4; Pulse Ox 97% on R/A; Pain 0/10; slm 05/16 03:25 BP 141 / 70; Pulse 89; Resp 18; Temp 96.9(T); Pulse Ox 96% on R/A; Pain 0/10; ka4 Vitals: 05/15 23:04 Log In time N/A- police car arrival. jf3 ED Course: 23:02 Patient visited by Toby Mckeon. zo 23:02 Patient moved to Waiting zo 23:02 Patient moved to [facility] zo 23:07 Triage Initiated jf3 23:08 Segundo Atwood MD is Attending Physician. pc 23:08 Patient visited by Segundo Atwood MD. pc 23:09 Nelli Arredondo LPN is Primary Nurse. slm 23:11 Patient visited by Nelli Arredondo LPN. slm 23:15 Pt greeted and oriented to ED. Patient advised of names of staff involved in care, kb5 location of call sauer, wait times and NPO status. Patient has correct armband on for positive identification. Placed in psych safe attire. Bed in low position. Call light in reach. Side rails up X 1. Security observing. Property removed, inventory done, secured in belongings bag- Placed in Locker 1. Door closed. Noise minimized. Visitors limited. Psych Safety Check: Location: Psych Room. Visual Assessment: Cooperative. Psych Safety Check: Location: Psych Room. Visual Assessment: Cooperative. 23:18 The patient / caregiver is instructed regarding the plan of care and ED course. jf3 23:22 Patient visited by Noe Kidd PCA. kb5 23:27 Patient visited by Italia Corrales LPN. ka4 23:30 Psych Safety Check: Location: Psych Room. Visual Assessment: Cooperative. kb5 23:42 Patient visited by Noe Kidd PCA. kb5 23:45 Psych Safety Check: Location: Psych Room. Visual Assessment: Cooperative. kb5 23:50 Patient visited by Nelli Arredondo LPN. slm 23:50 No IV's were initiated during this patient's visit. No procedures done that require slm assistance. Labs drawn. (by ED staff). Sent per order to lab. Urine collected. Urine specimen sent to lab. 05/16 00:00 Psych Safety Check: Location: Psych Room. Visual Assessment: Cooperative. kb5 00:01 Patient visited by Noe Kidd PCA. kb5 00:02 Patient visited by Nelli Arredondo LPN. slm 00:15 Psych Safety Check: Location: Psych Room. Visual Assessment: Cooperative. kb5 00:29 Patient visited by Noe Kidd PCA. kb5 00:30 Psych Safety Check: Location: Psych Room. Visual Assessment: Cooperative. kb5 00:45 Patient visited by Noe Kidd PCA. kb5 00:45 Psych Safety Check: Location: Psych Room. Visual Assessment: Cooperative. kb5 01:00 Psych Safety Check: Location: Psych Room. Visual Assessment: Cooperative. kb5 01:08 Patient visited by Noe Kidd PCA. kb5 01:15 Patient visited by Noe Kidd PCA. kb5 01:15 Psych Safety Check: Location: Psych Room. Visual Assessment: Cooperative. kb5 01:16 Gallo Sarah is Hospitalizing Provider. pc 01:30 Psych Safety Check: Location: Psych Room. Visual Assessment: Cooperative. kb5 01:34 Patient name changed from José Miguel\\S\\\\S\\May\\S\\ to José Miguel\\S\\Abdias\\S\\May. EDMS 01:34 [facility] Payment Agreement was scanned into [employer] and attached to record. hs2 01:38 Patient visited by Noe Kidd PCA. kb5 01:40 Primary Nurse role handed off by Nelli Arredondo LPN tasha 01:45 Patient visited by Noe Kidd PCA. kb5 01:45 Psych Safety Check: Location: Psych Room. Visual Assessment: Cooperative. kb5 01:51 Patient visited by Italia Corrales LPN. ka4 01:57 Patient visited by Italia Corrales LPN. ka4 02:00 Psych Safety Check: Location: Psych Room. Visual Assessment: Cooperative. kb5 02:06 [facility] Legal paperwork was scanned into [employer] and attached to record. jl 02:15 Psych Safety Check: Location: Psych Room. Visual Assessment: Cooperative. kb5 02:30 Psych Safety Check: Location: Psych Room. Visual Assessment: Cooperative. kb5 02:43 Patient visited by Noe Kidd PCA. kb5 02:45 Psych Safety Check: Location: Psych Room. Visual Assessment: Cooperative. kb5 03:00 Psych Safety Check: Location: Psych Room. Visual Assessment: Cooperative. kb5 03:15 Psych Safety Check: Location: Psych Room. Visual Assessment: Cooperative. kb5 03:22 Alen Mabry,RICHARD is Primary Nurse. mgs 03:26 Patient visited by Italia Corrales LPN. ka4 03:30 Patient visited by Noe Kidd PCA. kb5 03:30 Psych Safety Check: Location: Psych Room. Visual Assessment: Cooperative. kb5 03:45 Patient visited by Noe Kidd PCA. kb5 03:45 Psych Safety Check: Location: Psych Room. Visual Assessment: Cooperative. kb5 04:00 Patient visited by Noe Kidd PCA. kb5 04:00 Psych Safety Check: Location: Psych Room. Visual Assessment: Cooperative. kb5 04:02 Patient visited by Italia Corrales LPN. ka4 04:15 Patient visited by Noe Kidd PCA. kb5 04:15 Psych Safety Check: Location: Psych Room. Visual Assessment: Cooperative. kb5 Attachments: 02:06 [facility] Legal paperwork jl Order Results: Lab Order: Acetaminophen Level; SPEC'M 05/15/16 23:35 Test: ACETAMINOPHEN LEVEL; Value: < 2.0; Range: 10.0-30.0; Abnormal: Below low normal; Units: UG/ML; Status: F Lab Order: Basic Metabolic Profile; SPEC'M 05/15/16 23:35 Test: GLUCOSE, FASTING; Value: 92; Range: 70-105; Units: MG/DL; Status: F Test: BLOOD UREA NITROGEN; Value: 12; Range: 7-18; Units: MG/DL; Status: F Test: CREATININE FOR GFR; Value: 1.28; Range: 0.70-1.30; Units: MG/DL; Status: F Test: SODIUM LEVEL; Value: 143; Range: 136-145; Units: MEQ/L; Status: F Test: POTASSIUM SERUM; Value: 3.7; Range: 3.5-5.1; Units: MEQ/L; Status: F Test: CHLORIDE LEVEL; Value: 103; Range: 98-107; Units: MEQ/L; Status: F Test: CARBON DIOXIDE LEVEL; Value: 30; Range: 21-32; Units: MEQ/L; Status: F Test: ANION GAP; Value: 10; Range: 8-16; Units: MEQ/L; Status: F Test: CALCIUM LEVEL; Value: 8.9; Range: 8.5-10.1; Units: MG/DL; Status: F Lab Order: Complete Blood Count; SPEC'M 05/15/16 23:35 Test: WHITE BLOOD COUNT; Value: 9.8; Range: 4.0-10.0; Units: K/mm3; Status: F Test: RED BLOOD COUNT; Value: 4.60; Range: 4.30-6.10; Units: M/mm3; Status: F Test: HEMOGLOBIN; Value: 14.3; Range: 14.0-18.0; Units: g/dl; Status: F Test: HEMATOCRIT; Value: 41.5; Range: 42.0-52.0; Abnormal: Below low normal; Units: %; Status: F Test: MEAN CORPUSCULAR VOLUME; Value: 90.3; Range: 80.0-96.0; Units: fl; Status: F Test: MEAN CORPUSCULAR HEMOGLOBIN; Value: 31.1; Range: 27.0-33.0; Units: pg; Status: F Test: MEAN CORPUSCULAR HGB CONC; Value: 34.4; Range: 32.0-36.5; Units: g/dl; Status: F Test: RED CELL DISTRIBUTION WIDTH; Value: 13.0; Range: 11.5-14.5; Units: %; Status: F Test: PLATELET COUNT, AUTOMATED; Value: 271; Range: 150-450; Units: k/mm3; Status: F Lab Order: Drug Eval Toxicology ED Only; SPEC'M 05/15/16 23:36 Test: AMPHETAMINES LEVEL URINE; Value: POSITIVE; Range: NEGATIVE; Abnormal: Above high normal; Status: F Test: BARBITURATES URINE; Value: NEGATIVE; Range: NEGATIVE; Status: F Test: BENZODIAZEPINES URINE; Value: NEGATIVE; Range: NEGATIVE; Status: F Test: CANNABINOIDS URINE; Value: NEGATIVE; Range: NEGATIVE; Status: F Test: COCAINE METABOLITE URINE; Value: NEGATIVE; Range: NEGATIVE; Status: F Test: METHADONE URINE; Value: NEGATIVE; Range: NEGATIVE; Status: F Test: OPIATES URINE; Value: NEGATIVE; Range: NEGATIVE; Status: F Test: TRICYCLIC ANTIDEPRESS URINE; Value: NEGATIVE; Range: NEGATIVE; Status: F Test Note: ; ALL PRESUMPTIVE POSITIVE FINDINGS ARE UNCONFIRMED NORMAL VALUES THRESHOLD IN NG/ML AMPHETAMINES 1000 METHAMPHETAMINES 1000 BARBITURATES 300 BENZODIAZEPINES 300 CANNABINOIDS (THC) 50 COCAINE METABOLITE 300 METHADONE 300 OPIATES 300 PHENCYCLIDINE 25 TRICYCLIC ANTIDEPRESSANTS 1000 RESULTS ARE FOR MEDICAL PURPOSES ONLY. ALL URINE SPECIMENS WILL BE SAVED FOR 3 DAYS. IF CONFIRMATION OF A PRESUMPTIVE POSTIVE SCREEN RESULT IS DESIRED, CALL CHEMISTRY ([phone]) AND REQUEST URINE TO BE SENT TO REFERENCE LAB. FOR A LIST OF CLOSELY RELATED COMPOUNDS PLEASE CALL THE LAB. Lab Order: Ethyl Alcohol (ethanol); SPEC'M 05/15/16 23:35 Test: ETHYL ALCOHOL (ETHANOL); Value: < 0.003; Range: 0.000-0.010; Units: %; Status: F Lab Order: Liver Profile; SPEC'M 05/15/16 23:35 Test: AST/SGOT; Value: 21; Range: 15-37; Units: U/L; Status: F Test: ALT/SGPT; Value: 36; Range: 12-78; Units: U/L; Status: F Test: ALKALINE PHOSPHATASE; Value: 75; Range: 45-117; Units: U/L; Status: F Test: BILIRUBIN,TOTAL; Value: 1.3; Range: 0.2-1.0; Abnormal: Above high normal; Units: MG/DL; Status: F Test: BILIRUBIN,DIRECT; Value: 0.3; Range: 0.0-0.2; Abnormal: Above high normal; Units: MG/DL; Status: F Test: TOTAL PROTEIN; Value: 7.0; Range: 6.4-8.2; Units: GM/DL; Status: F Test: ALBUMIN; Value: 3.8; Range: 3.2-5.2; Units: GM/DL; Status: F Test: ALBUMIN/GLOBULIN RATIO; Value: 1.19; Range: 1.00-1.93; Status: F Lab Order: Salicylate Level; SPEC'M 05/15/16 23:35 Test: SALICYLATE LEVEL; Value: < 1.7; Range: 5.0-30.0; Abnormal: Below low normal; Units: MG/DL; Status: F Lab Order: Thyroid Stimulating Hormone; SPEC'M 05/15/16 23:35 Test: THYROID STIMULATING HORMONE; Value: 1.270; Range: 0.463-3.98; Units: uIU/ML; Status: F Outcome: 01:16 Decision to Hospitalize by Provider. 04:01 Discharge Assessment: Patient awake, alert and oriented x 3. No cognitive and/or ka4 functional deficits noted. Patient verbalized understanding of disposition instructions. Discharge Assessment: patient administered narcotics - no. The following High Risk Discharge criteria are identified: None. Admitted to Psych accompanied by tech, via wheelchair. Condition: stable. No special radiology studies were completed. 04:18 Patient left the ED. ka4 Signatures: Dispatcher [employer] EDMS Segundo Atwood MD MD pc Skyler, Nirav, PSA PSA Toby Swan Kristopher, ATTENDANT HONOR BAR ATTENDANT HONOR BAR kb5 Terri Yoder, ATTENDANT HONOR BAR ATTENDANT HONOR BAR tasha Nelli Arredondo,ASBESTOS COVERER ASBESTOS COVERER slm Italia Corrales,ASBESTOS COVERER ASBESTOS COVERER ka4 Alen Mabry RN RN s Se Franks RN RN 3 Katrin Redding, Reg Reg hs2 Corrections: (The following items were deleted from the chart) 01:03 00:46 Referral Information: Evaluation referral is generated by a police agency: [facility] (Marion Sabula # [id number]) on . The patient was referred for evaluation because patient had reportedly sent pictures of pills & text messages regarding suicide to family members. gita Chart Complete MTDD
--- NOTE | 2016-05-18 05:19 | EDDOCDS ---
Physician Documentation [facility] Name: José Miguel May Age: 20 yrs Sex: Male : 1995 Arrival Date: 05/15/2016 Time: 23:00 Bed [id number] Private MD: Disposition: 05/16 01:15 Critical Care: Critical care not applicable. pc Disposition: 05/16/16 01:16 Hospitalization ordered by Gallo Sarah for Inpatient Admission. Preliminary diagnosis are Major depressive disorder, recurrent, moderate, Suicidal ideations. - Bed requested for Admit. - Status is Inpatient Admission. ka4 - Condition is Stable. - Problem is new. - Symptoms are unchanged. HPI: 05/15 23:08 This 20 yrs old Male presents to ER via Police Car with complaints of Psych Problem. 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 A reliable history and/or pc examination was not able to be obtained, due to he is not willing to answer any questions, with every response either "I don't know" or "no". Per police, he sent a picture of pills to his family with SI threats. It is unknown whether or not the patient has recently seen a physician. Historical: - Allergies: no known allergies; - Home Meds: 1. none - PMHx: none; - PSHx: none; - The history from nurses notes was reviewed: but there are no nursing notes, or only partial notes available at the time of my charting. - Social history: Smoking status: other No barriers to communication noted, The patient speaks fluent Arabic. - : The pt / caregiver states he / she is not on anticoagulants. Home medication list is obtained from the patient. - Exposure Risk Screening:: None identified. - Immunization history:: Last tetanus immunization: up to date. - Family history: Not pertinent. - Social history:: the patient is a non-smoker, the patient does not drink alcohol, the patient does not use illicit drugs. ROS: 23:08 unable to reliably obtain, since his answer to all queries is "no".. pc Exam: 23:08 General Appearance: alert, no acute distress. pc 23:08 ENT: ear, nose and throat normal, pharynx normal. 23:08 Eyes: pupils equal, round and reactive to light, extraocular motions intact. 23:08 Neck: The exam reveals no acute abnormalities. ROM is normal and painless. No nuchal rigidity is noted.. 23:08 Respiratory: breathing is even and unlabored, breath sounds are normal. 23:08 Cardiovascular: regular pulse rate, regular heart rhythm, normal heart sounds, equal and full pulses bilaterally. 23:08 Abdomen: soft, non-tender, no organomegaly, normal bowel sounds. 23:08 Skin: skin color is normal, warm, dry. 23:08 Extremities: The extremities have a grossly normal appearance, are non-tender, without acute ROM abnormalities. 23:08 Neuro: alert, oriented to person, place and time, cranial nerves normal as tested, no motor deficits, no sensory deficits. 23:08 Psych: mood is non-communicative, affect is flat. Vital Signs: 23:09 BP 132 / 77; Pulse 96; Resp 16; Temp 98.4; Pulse Ox 97% on R/A; Pain 0/10; slm 05/16 03:25 BP 141 / 70; Pulse 89; Resp 18; Temp 96.9(T); Pulse Ox 96% on R/A; Pain 0/10; ka4 MDM: 05/15 23:08 Consult PFS/PSA/Adult And Pediatric Neurologist: Patient's case requires discussion with on-call pc Psychiatrist ordered. 23:08 PSA/PFS to call Nursing Firefighter Marine, to enter patient data on [place] if patient pc involuntarily admitted or transferred for SI or HI ordered. 23:08 Confirm accurate psychiatric medication list and times of last dosage ordered. pc 23:08 Detain Pt Until Medically/PFS Cleared ordered. pc 23:08 Differential diagnosis: depression, suicidal ideation. Plan: labs, PFS eval. pc 23:09 Acetaminophen Level Ordered. EDMS 23:09 Basic Metabolic Profile Ordered. EDMS 23:09 Complete Blood Count Ordered. EDMS 23:09 Drug Eval Toxicology ED Only Ordered. EDMS 23:09 Ethyl Alcohol (ethanol) Ordered. EDMS 23:09 Liver Profile Ordered. EDMS 23:09 Salicylate Level Ordered. EDMS 23:09 Thyroid Stimulating Hormone Ordered. EDMS 05/16 00:37 Financial registration complete. hs2 00:42 Acetaminophen Level Reviewed. pc 00:42 Complete Blood Count Reviewed. pc 00:42 Drug Eval Toxicology ED Only Reviewed. pc 00:42 Liver Profile Reviewed. pc 00:42 Salicylate Level Reviewed. pc 00:42 Basic Metabolic Profile Reviewed. pc 00:42 Ethyl Alcohol (ethanol) Reviewed. pc 00:42 Thyroid Stimulating Hormone Reviewed. pc 01:15 The patient has been medically cleared for psychiatric evaluation, admission and/or pc transfer. [place] Safe Act reporting: The patient poses a significant risk to self or others, and PSA/PFS has notified the Nursing Firefighter Marine and he/she will complete the required data warehouse specialist. Data reviewed: old medical records, vital signs, nurses notes, lab test results. Test interpretation: LAB - all labs as ordered have been reviewed, interpreted and considered in the overall management of the clinical presentation;. The patient has been re-examined and re-evaluated. There is no appreciated change of the patient's symptoms at this time. Disposition: The historical points, examination findings, and any diagnostic results supporting the provided diagnosis, were discussed with the patient or legal guardian. The need for further work-up and/or treatment in the hospital was explained. 01:24 Admit to IMHU: ordered. EDMS 01:25 REGULAR DIET ordered. EDSD 01:34 [facility] Payment Agreement was scanned into [email or web address] and attached to record. hs2 02:06 [facility] Legal paperwork was scanned into [email or web address] and attached to record. jl 03:46 Consult PFS/PSA/Adult And Pediatric Neurologist: Patient's case requires discussion with on-call jl Psychiatrist complete. 03:46 PSA/PFS to call Nursing Firefighter Marine, to enter patient data [place] if patient jl involuntarily admitted or transferred for SI or HI complete. Signatures: Dispatcher Treasure Data Segundo Hilliard MD MD pc LaFontaine, Jon, PSA PSA Italia Dougherty LPN LPN ka4 Se Franks,RN RN jf3 Katrin Redding, Reg Reg hs2 The chart was reviewed and I authenticate all verbal orders and agree with the evaluation and treatment provided.Attachments: 01:34 [facility] Payment Agreement hs2 Chart Complete MTDD
--- NOTE | 2016-05-18 05:19 | EDDOCDS ---
Physician Documentation [facility] Name: José Miguel May Age: 20 yrs Sex: Male : 1995 Arrival Date: 05/15/2016 Time: 23:00 Bed BHU1 Private MD: Disposition: 05/16 01:15 Critical Care: Critical care not applicable. pc Disposition: 05/16/16 01:16 Hospitalization ordered by Gallo Sarah for Inpatient Admission. Preliminary diagnosis are Major depressive disorder, recurrent, moderate, Suicidal ideations. - Bed requested for Admit. - Status is Inpatient Admission. ka4 - Condition is Stable. - Problem is new. - Symptoms are unchanged. HPI: 05/15 23:08 This 20 yrs old Male presents to ER via Police Car with complaints of Psych Problem. 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 A reliable history and/or pc examination was not able to be obtained, due to he is not willing to answer any questions, with every response either "I don't know" or "no". Per police, he sent a picture of pills to his family with SI threats. It is unknown whether or not the patient has recently seen a physician. Historical: - Allergies: no known allergies; - Home Meds: 1. none - PMHx: none; - PSHx: none; - The history from nurses notes was reviewed: but there are no nursing notes, or only partial notes available at the time of my charting. - Social history: Smoking status: other No barriers to communication noted, The patient speaks fluent Irish. - : The pt / caregiver states he / she is not on anticoagulants. Home medication list is obtained from the patient. - Exposure Risk Screening:: None identified. - Immunization history:: Last tetanus immunization: up to date. - Family history: Not pertinent. - Social history:: the patient is a non-smoker, the patient does not drink alcohol, the patient does not use illicit drugs. ROS: 23:08 unable to reliably obtain, since his answer to all queries is "no".. pc Exam: 23:08 General Appearance: alert, no acute distress. pc 23:08 ENT: ear, nose and throat normal, pharynx normal. 23:08 Eyes: pupils equal, round and reactive to light, extraocular motions intact. 23:08 Neck: The exam reveals no acute abnormalities. ROM is normal and painless. No nuchal rigidity is noted.. 23:08 Respiratory: breathing is even and unlabored, breath sounds are normal. 23:08 Cardiovascular: regular pulse rate, regular heart rhythm, normal heart sounds, equal and full pulses bilaterally. 23:08 Abdomen: soft, non-tender, no organomegaly, normal bowel sounds. 23:08 Skin: skin color is normal, warm, dry. 23:08 Extremities: The extremities have a grossly normal appearance, are non-tender, without acute ROM abnormalities. 23:08 Neuro: alert, oriented to person, place and time, cranial nerves normal as tested, no motor deficits, no sensory deficits. 23:08 Psych: mood is non-communicative, affect is flat. Vital Signs: 23:09 BP 132 / 77; Pulse 96; Resp 16; Temp 98.4; Pulse Ox 97% on R/A; Pain 0/10; slm 05/16 03:25 BP 141 / 70; Pulse 89; Resp 18; Temp 96.9(T); Pulse Ox 96% on R/A; Pain 0/10; ka4 MDM: 05/15 23:08 Consult PFS/PSA/Head Of Sales: Patient's case requires discussion with on-call pc Psychiatrist ordered. 23:08 PSA/PFS to call Nursing Barrel Loader, to enter [place] data [place] if patient pc involuntarily admitted or transferred for SI or HI ordered. 23:08 Confirm accurate psychiatric medication list and times of last dosage ordered. pc 23:08 Detain Pt Until Medically/PFS Cleared ordered. pc 23:08 Differential diagnosis: depression, suicidal ideation. Plan: labs, PFS eval. pc 23:09 Acetaminophen Level Ordered. EDMS 23:09 Basic Metabolic Profile Ordered. EDMS 23:09 Complete Blood Count Ordered. EDMS 23:09 Drug Eval Toxicology ED Only Ordered. EDMS 23:09 Ethyl Alcohol (ethanol) Ordered. EDMS 23:09 Liver Profile Ordered. EDMS 23:09 Salicylate Level Ordered. EDMS 23:09 Thyroid Stimulating Hormone Ordered. EDMS 05/16 00:37 Financial registration complete. hs2 00:42 Acetaminophen Level Reviewed. pc 00:42 Complete Blood Count Reviewed. pc 00:42 Drug Eval Toxicology ED Only Reviewed. pc 00:42 Liver Profile Reviewed. pc 00:42 Salicylate Level Reviewed. pc 00:42 Basic Metabolic Profile Reviewed. pc 00:42 Ethyl Alcohol (ethanol) Reviewed. pc 00:42 Thyroid Stimulating Hormone Reviewed. pc 01:15 The patient has been medically cleared for psychiatric evaluation, admission and/or pc transfer. [place] Safe Act reporting: The patient poses a significant risk to self or others, and PSA/PFS has notified the Nursing Barrel Loader and he/she will complete the required associate director data & analytics. Data reviewed: old medical records, vital signs, nurses notes, lab test results. Test interpretation: LAB - all labs as ordered have been reviewed, interpreted and considered in the overall management of the clinical presentation;. The patient has been re-examined and re-evaluated. There is no appreciated change of the patient's symptoms at this time. Disposition: The historical points, examination findings, and any diagnostic results supporting the provided diagnosis, were discussed with the patient or legal guardian. The need for further work-up and/or treatment in the hospital was explained. 01:24 Admit to IMHU: ordered. EDMS 01:25 REGULAR DIET ordered. EDSD 01:34 [facility] Payment Agreement was scanned into [employer] and attached to record. hs2 02:06 [facility] Legal paperwork was scanned into [employer] and attached to record. jl 03:46 Consult PFS/PSA/Head Of Sales: Patient's case requires discussion with on-call jl Psychiatrist complete. 03:46 PSA/PFS to call Nursing Barrel Loader, to enter [place] data [place] if patient jl involuntarily admitted or transferred for SI or HI complete. Signatures: Dispatcher Celaton Segundo Hilliard MD MD pc LaFontaine, Jon, PSA PSA Italia Dougherty LPN LPN ka4 Se Franks,RN RN jf3 Katrin Redding, Reg Reg hs2 The chart was reviewed and I authenticate all verbal orders and agree with the evaluation and treatment provided.Attachments: 01:34 [facility] Payment Agreement hs2 Chart Complete MTDD
--- NOTE | 2016-05-18 16:50 | ECGEPIP ---
Stationary ECG Study [facility] Test Date: 2016-05-16 Pat Name: AKSHAT RODRIGUEZ Department: Room: [place] [address] Gender: M Nursing Student: DANIEL : 1995 Requested By: Karlene Pena Order Number: [id number] Reading MD: Santino Tuttle Measurements Intervals [place] Rate: 67 P: 27 PA: 158 QRS: 59 QRSD: 108 T: 28 QT: 365 QTc: 386 Interpretive Statements SINUS RHYTHM NORMAL Electronically Signed On 05-18-2016 16:49:53 EST by Santino Tuttle
== END 2016-05-17 10:00 | disposition home or self-care (01) | DRG 882 ==
LOC: M ED 23:00 → M PSY 05-16 04:23
PROVIDERS: ADMIT Psychiatry & Neurology Psychiatry; ATTEND Psychiatry & Neurology Psychiatry
DX: F43.20 Adjustment disorder, unspecified (principal); Z79.899 Other long term (current) drug therapy

== ENCOUNTER 2017-07-06 22:14 | Emergency (ER) | payer OTHER ==
[2017-07-06 22:52] LABS: HEMATOCRIT 42.6 % (42.0-52.0); MEAN CORPUSCULAR HEMOGLOBIN 31.3 pg (27.0-33.0); MEAN CORPUSCULAR HGB CONC 35.2 g/dl (32.0-36.5); MEAN CORPUSCULAR VOLUME 88.8 fl (80.0-96.0); PLATELET COUNT, AUTOMATED 292 10^3/uL (150-450); RED CELL DISTRIBUTION WIDTH 11.7 % (11.5-14.5); WHITE BLOOD COUNT 8.8 10^3/uL (4.0-10.0)
[2017-07-06 23:07] LABS: AMPHETAMINES LEVEL URINE NEGATIVE (NEGATIVE); BARBITURATES URINE NEGATIVE (NEGATIVE); BENZODIAZEPINES URINE NEGATIVE (NEGATIVE); CANNABINOIDS URINE NEGATIVE (NEGATIVE); COCAINE METABOLITE URINE NEGATIVE (NEGATIVE); METHADONE URINE NEGATIVE (NEGATIVE); OPIATES URINE NEGATIVE (NEGATIVE); PHENCYCLIDINE URINE NEGATIVE (NEGATIVE)
[2017-07-06 23:31] LABS: ALBUMIN 4.6 GM/DL (3.2-5.2); ALBUMIN/GLOBULIN RATIO 1.53 (1.00-1.93); ALKALINE PHOSPHATASE 72 U/L (45-117); ALT/SGPT 39 U/L (12-78); ANION GAP 7 MEQ/L (8-16); AST/SGOT 24 U/L (7-37); BILIRUBIN,DIRECT 0.4 MG/DL (0.0-0.2); BILIRUBIN,TOTAL 1.6 MG/DL (0.2-1.0); BLOOD UREA NITROGEN 10 MG/DL (7-18); CALCIUM LEVEL 9.3 MG/DL (8.5-10.1); CARBON DIOXIDE LEVEL 30 MEQ/L (21-32); CHLORIDE LEVEL 107 MEQ/L (98-107); CREATININE FOR GFR 1.01 MG/DL (0.70-1.30); ETHYL ALCOHOL (ETHANOL) 0.118 % (0.000-0.010); GLOMERULAR FILTRATION RATE > 60.0 (>60); GLUCOSE, FASTING 90 MG/DL (70-100); POTASSIUM SERUM 3.6 MEQ/L (3.5-5.1); SODIUM LEVEL 144 MEQ/L (136-145); THYROID STIMULATING HORMONE 0.781 uIU/ML (0.358-3.740); TOTAL PROTEIN 7.6 GM/DL (6.4-8.2)
[2017-07-06 23:32] LABS: ACETAMINOPHEN LEVEL < 2.0 UG/ML (10.0-30.0); SALICYLATE LEVEL < 1.7 MG/DL (5.0-30.0)
== END 2017-07-07 01:00 | disposition home or self-care (01) ==
LOC: M ED 22:14
DX: F10.220 Alcohol dependence with intoxication, uncomplicated (principal); Y90.0 Blood alcohol level of less than 20 mg/100 ml; F17.210 Nicotine dependence, cigarettes, uncomplicated
CPT/HCPCS: G0480

== ENCOUNTER 2017-08-16 06:28 | Emergency (ER) | payer OTHER ==
[2017-08-16 07:22] LABS: CARBOXYHEMOGLOBIN 2.4 % (0.0-1.5)
[2017-08-16] MEDS: diphenhydrAMINE INJ 50MG/ML VIAL (J1200) IV (07:23)
[2017-08-16] MEDS: KETOROLAC 30 MG/ML VIAL (J1885) IV (07:23)
[2017-08-16] MEDS: NS 1,000 ML IV (07:23)
[2017-08-16] MEDS: METOCLOPRAMIDE INJ 10MG/2ML VIAL (J2765) IV (07:23)
[2017-08-16 07:26] LABS: BASO # 0.1 10^3/uL (0.0-0.2); BASO % 0.7 % (0.0-1.0); EOS % 0.4 % (0.0-3.0); HEMATOCRIT 45.8 % (42.0-52.0); HEMOGLOBIN 15.7 g/dl (13.5-17.5); IMMATURE GRANULOCYTE % 0.3 % (0-3.0); LYMPH # 1.8 10^3/uL (1.5-6.5); LYMPH % 25.6 % (24.0-44.0); MEAN CORPUSCULAR HEMOGLOBIN 30.7 pg (27.0-33.0); MEAN CORPUSCULAR HGB CONC 34.3 g/dl (32.0-36.5); MEAN CORPUSCULAR VOLUME 89.5 fl (80.0-96.0); MONO # 0.6 10^3/uL (0.0-0.8); NEUTROPHILS # 4.5 10^3/uL (1.8-7.7); PLATELET COUNT, AUTOMATED 278 10^3/uL (150-450); RED BLOOD COUNT 5.12 10^6/uL (4.30-6.10); RED CELL DISTRIBUTION WIDTH 11.9 % (11.5-14.5); WHITE BLOOD COUNT 6.9 10^3/uL (4.0-10.0)
[2017-08-16 07:54] LABS: ALBUMIN 4.3 GM/DL (3.2-5.2); ALBUMIN/GLOBULIN RATIO 1.16 (1.00-1.93); ALKALINE PHOSPHATASE 75 U/L (45-117); ALT/SGPT 44 U/L (12-78); ANION GAP 4 MEQ/L (8-16); AST/SGOT 32 U/L (7-37); BILIRUBIN,DIRECT 0.2 MG/DL (0.0-0.2); BILIRUBIN,TOTAL 1.1 MG/DL (0.2-1.0); BLOOD UREA NITROGEN 10 MG/DL (7-18); C REACTIVE PROTEIN QUANTITATIV < 0.30 MG/DL (0.00-0.30); CALCIUM LEVEL 9.2 MG/DL (8.5-10.1); CARBON DIOXIDE LEVEL 30 MEQ/L (21-32); CHLORIDE LEVEL 108 MEQ/L (98-107); CREATININE FOR GFR 1.09 MG/DL (0.70-1.30); GLOMERULAR FILTRATION RATE > 60.0 (>60); GLUCOSE, FASTING 82 MG/DL (70-100); POTASSIUM SERUM 4.4 MEQ/L (3.5-5.1); SODIUM LEVEL 142 MEQ/L (136-145)
== END 2017-08-16 08:52 | disposition home or self-care (01) ==
LOC: M ED 06:28
DX: G43.909 Migraine, unspecified, not intractable, without status migrainosus (principal); R11.2 Nausea with vomiting, unspecified; R19.7 Diarrhea, unspecified; F17.200 Nicotine dependence, unspecified, uncomplicated; Z88.8 Allergy status to other drugs, medicaments and biological substances
CPT/HCPCS: J1200